=== PATIENT | female | born 1970 | race Caucasian/White ===

== ENCOUNTER 2017-07-22 03:49 | Emergency (ER) | payer MEDICARE, MEDICAID ==
[~2017-07-22] VITALS: Ht 162.6 cm; Wt 60.0 kg
[~2017-07-22 03:49] MED LIST: ARIP2TAB2 PO; BUSP5TAB2 PO; LAMO2TB. PO; RISP0.2518 PO; SERT25TA PO
[2017-07-22 04:32] LABS: BASOPHILS % (AUTO) 1 % (0-1); EOSINOPHILS % (AUTO) 1 % (1-7); LYMPHOCYTES # (AUTO) 2.09 x10^3/uL (1-3.4); LYMPHOCYTES % (AUTO) 15 % (22-44); MD NO; MEAN CORPUSCULAR HEMOGLOBIN 32.3 pg (27.0-34.8); MEAN CORPUSCULAR HGB CONC 34.7 g/dL (32.4-35.8); MEAN CORPUSCULAR VOLUME 93.3 fL (80-100); MEAN PLATELET VOLUME 7.7 fL (7.4-10.4); MONOCYTES # (AUTO) 0.95 x10^3/uL (0.2-0.8); MONOCYTES % (AUTO) 7 % (2-9); NEUTROPHILS # (AUTO) 10.76 x10^3/uL (1.8-6.8); NEUTROPHILS % (AUTO) 77 % (42-75); PLATELET COUNT 319 x10^3/uL (130-400); RED BLOOD COUNT 4.71 x10^6/uL (3.82-5.3); RED CELL DISTRIBUTION WIDTH 13.4 % (9.6-15.2)
[2017-07-22 04:38] LABS: ALANINE AMINOTRANSFERASE 25 U/L (12-78); ALBUMIN 3.6 g/dL (3.4-5.0); ANION GAP 5 mmol/L (5-15); CALCIUM 8.9 mg/dL (8.5-10.1); CHLORIDE 105 mmol/L (98-107); CREATININE 0.66 mg/dL (0.55-1.02); SALICYLATE LEVEL 5.7 mg/dL (2.8-20.0)
[2017-07-22 04:40] LABS: ALKALINE PHOSPHATASE 75 U/L (45-117); BILIRUBIN,TOTAL 0.4 mg/dL (0.2-1.0)
[2017-07-22 04:41] LABS: ACETAMINOPHEN < 2 mcg/mL (10-30)
[2017-07-22 05:07] VITALS: BP 130/70
[2017-07-22 05:28] LABS: AMPHETAMINE SCREEN, URINE Negative (Negative); BARBITURATE SCREEN, URINE Negative (Negative); BENZODIAZEPINE SCREEN, URINE Negative (Negative); CANNABINOID SCREEN, URINE Negative (Negative); COCAINE SCREEN, URINE Negative (Negative); METHADONE SCREEN, URINE Negative (Negative); OPIATE SCREEN, URINE Negative (Negative)
== END 2017-07-22 05:41 | disposition home or self-care (01) ==
LOC: ED 05:31
DX: F31.9 Bipolar disorder, unspecified (principal); R73.9 Hyperglycemia, unspecified; F25.9 Schizoaffective disorder, unspecified
CPT/HCPCS: 36415; 80053; 80307; 80329; 85025; 99284; G0480

== ENCOUNTER 2017-10-13 21:37 | Emergency (ER) | payer MEDICARE, MEDICAID ==
[~2017-10-13] VITALS: Ht 162.6 cm; Wt 63.3 kg
[2017-10-13 21:39] VITALS: BP 162/102
== END 2017-10-13 22:57 | disposition home or self-care (01) ==
LOC: ED 22:45
DX: K04.7 Periapical abscess without sinus (principal); I10 Essential (primary) hypertension; R73.9 Hyperglycemia, unspecified
CPT/HCPCS: 41800; 99283

== ENCOUNTER 2018-08-01 17:32 | Emergency (ER) | payer MEDICARE, MEDICAID ==
[~2018-08-01] VITALS: Ht 162.6 cm; Wt 56.6 kg
[2018-08-01 17:57] LABS: BASOPHILS # (AUTO) 0.08 x10^3/uL (0-0.1); BASOPHILS % (AUTO) 1 % (0-1); EOSINOPHILS % (AUTO) 1 % (1-7); LYMPHOCYTES # (AUTO) 2.98 x10^3/uL (1-3.4); LYMPHOCYTES % (AUTO) 26 % (22-44); MD NO; MEAN CORPUSCULAR HEMOGLOBIN 32.4 pg (27.0-34.8); MEAN CORPUSCULAR HGB CONC 34.6 g/dL (32.4-35.8); MEAN CORPUSCULAR VOLUME 93.8 fL (80-100); MEAN PLATELET VOLUME 7.5 fL (7.4-10.4); MONOCYTES # (AUTO) 0.98 x10^3/uL (0.2-0.8); MONOCYTES % (AUTO) 9 % (2-9); NEUTROPHILS # (AUTO) 7.19 x10^3/uL (1.8-6.8); NEUTROPHILS % (AUTO) 64 % (42-75); PLATELET COUNT 343 x10^3/uL (130-400); RED CELL DISTRIBUTION WIDTH 13.5 % (9.6-15.2)
--- NOTE | 2018-08-01 18:02 | NUR ---
47 YR OLD FEMALE HERE WITH C/O "VOICES REALLY BAD AND I GOT TO GET SOME HELP FOR THEM. THEY WANT ME TO LASH OUT AT PEOPLE, GIVE PEOPLE DIRTY LOOKS" WHEN ASKED IF THEY VOICES ARE TELLING HER TO HURT HERSELF REPLIES "IF I LISTEN TO THEM LONG ENOUGH" NO PLAN EXPRESSED. PT WAS EVICTED TODAY. PT COOPERATIVE WITH CARE. ONE BAG OF BELONGINGS TO SECURE CABINET. PT ALLOWED BLOOD DRAW, ABLE TO PROVIDE SMALL AMT OF URINE. SAMPLE WALKED TO LAB. PT STATES "JUST ATE AT [facility]" PT IN SECURE ROOM WITH SITTER. DISCUSSED WITH PT, POC, INCLUDING EVAL BY TELE PSYCH, STAYING IN ROOM, ASKING SITTERS FOR ASSISTANCE. UNDERSTANDING VERBALIZED.
[2018-08-01] MEDS ORDERED: LISI5TAB7 PO (18:08)
[2018-08-01 18:10] LABS: ALBUMIN 4.2 g/dL (3.4-5.0); ANION GAP 3 mmol/L (5-15); CALCIUM 10.5 mg/dL (8.5-10.1); CHLORIDE 107 mmol/L (98-107); CREATININE 0.71 mg/dL (0.55-1.02); SALICYLATE LEVEL 5.7 mg/dL (2.8-20.0)
[2018-08-01 18:16] LABS: OPIATE SCREEN, URINE Negative (Negative)
[2018-08-01 18:17] LABS: ACETAMINOPHEN < 2 mcg/mL (10-30)
[2018-08-01 18:22] LABS: AMPHETAMINE SCREEN, URINE Positive (Negative); BARBITURATE SCREEN, URINE Negative (Negative); BENZODIAZEPINE SCREEN, URINE Negative (Negative); CANNABINOID SCREEN, URINE Negative (Negative); COCAINE SCREEN, URINE Negative (Negative); METHADONE SCREEN, URINE Negative (Negative)
--- NOTE | 2018-08-01 18:49 | NUR ---
PT REMAINS COOPERATIVE WITH CARE. REMAINS IN SECURE ROOM WITH SITTER AT DOOR. PT PROVIDED WITH MEAL TRAY. REPORT TO JAGDISH AREVALO.
--- NOTE | 2018-08-01 18:55 | NUR ---
Bedside SBAR report received from RNVane. Pt resting on [place] [address] doors down. Sitter outside of room for pt safety.
--- NOTE | 2018-08-01 19:28 | NUR ---
Telephone SBAR report given to SOC .
--- NOTE | 2018-08-01 20:00 | NUR ---
SW at bedside to discuss discharge and resources with pt.
--- NOTE | 2018-08-01 20:54 | NUR ---
1 belonging bag given back to pt and pt given privacy to change into clothing.
[2018-08-01 20:59] VITALS: BP 145/91
--- NOTE | 2018-08-01 21:00 | NUR ---
Patient/Caregiver given discharge instructions and they have confirmed that they understand the instructions. Patient ambulatory with steady gait.
== END 2018-08-01 21:01 | disposition home or self-care (01) ==
LOC: ED 18:59
DX: F23 Brief psychotic disorder (principal); F15.10 Other stimulant abuse, uncomplicated; Z72.9 Problem related to lifestyle, unspecified; Z79.82 Long term (current) use of aspirin; I10 Essential (primary) hypertension
CPT/HCPCS: 36415; 80048; 80307; 80329; 82040; 84703; 85025; 99284; G0480

== ENCOUNTER 2018-08-30 06:24 | Emergency (ER) | payer MEDICARE, MEDICAID ==
[~2018-08-30] VITALS: Ht 162.6 cm; Wt 55.7 kg
[~2018-08-30 06:24] MED LIST changes: +LISI5TAB7 PO
[2018-08-30 06:27] VITALS: BP 169/106
--- NOTE | 2018-08-30 06:41 | NUR ---
TWO BAGS OF BELONGINGS STICKERED AND PLACED IN LOCKED CABINET.
--- NOTE | 2018-08-30 07:05 | NUR ---
Discharge instructions discussed with patient, verbalizes understanding. Patient ambulates with steady gait to discharge desk in no acute distress.
== END 2018-08-30 07:07 | disposition home or self-care (01) ==
LOC: ED 06:40
DX: F20.1 Disorganized schizophrenia (principal); Z72.9 Problem related to lifestyle, unspecified; I10 Essential (primary) hypertension; F31.9 Bipolar disorder, unspecified; F41.1 Generalized anxiety disorder
CPT/HCPCS: 99284